=== PATIENT | female | born 1955 | race Asian ===

== ENCOUNTER 2020-04-13 09:39 | Inpatient (IN) | payer MEDICAID ==
[2020-04-06 09:42] LABS: EOSINOPHILS % (AUTO) 1.7 % (0.0-3.0); HEMATOCRIT 44.1 % (37.0-47.0); HEMOGLOBIN 14.4 G/DL (12.0-16.0); LYMPHOCYTES % (AUTO) 47.6 % (20.0-45.0); MEAN CORPUSCULAR VOLUME 95 FL (80-99); MONOCYTES % (AUTO) 5.7 % (1.0-10.0); NEUTROPHILS % (AUTO) 43.9 % (45.0-75.0); PLATELET COUNT 164 K/UL (150-450); RED BLOOD COUNT 4.64 M/UL (4.20-5.40); RED CELL DISTRIBUTION WIDTH 12.7 % (11.6-14.8); WHITE BLOOD COUNT 5.6 K/UL (4.8-10.8)
[2020-04-06 09:46] LABS: APPEARANCE,URINE CLEAR; BILIRUBIN, URINE NEGATIVE (NEGATIVE); COLOR,URINE PALE YELLOW; GLUCOSE, URINE (UA) NEGATIVE (NEGATIVE); KETONES,URINE NEGATIVE (NEGATIVE); LEUKOCYTE ESTERASE ,URINE 1+ (NEGATIVE); NITRITE,URINE NEGATIVE (NEGATIVE); PH,URINE 7 (4.5-8.0); PROTEIN,URINE NEGATIVE (NEGATIVE); UROBILINOGEN,URINE NORMAL MG/DL (0.0-1.0)
[2020-04-06 10:08] LABS: ANION GAP 7 mmol/L (5-15); BLOOD UREA NITROGEN 10 mg/dL (7-18); CALCIUM 9.2 MG/DL (8.5-10.1); CARBON DIOXIDE 29 MMOL/L (21-32); CHLORIDE 106 MMOL/L (98-107); CREATININE 0.9 MG/DL (0.55-1.30); POTASSIUM 3.8 MMOL/L (3.5-5.1); SODIUM 142 MMOL/L (136-145)
--- NOTE | 2020-04-06 16:04 | Diagnostic Imaging Report ---
Indication: Dyspnea, preop Technique: XRAY Chest 2v Comparison: None Findings: There is no focal airspace consolidation. No pleural effusion, pneumothorax or radiographic evidence of pulmonary edema. Heart size and mediastinal contours within normal limits. Mild atherosclerotic calcifications noted in the aortic arch. There are mild degenerative changes in the spine. No acute osseous abnormality. Impression: No radiographic evidence of acute cardiopulmonary disease.
--- NOTE | 2020-04-06 16:08 | Cardiology Report ---
APPROVED REPORT EKG Measurement Heart [id number] <Conclusion> Normal sinus rhythm Right superior axis deviation Pulmonary disease pattern Right ventricular hypertrophy Nonspecific ST abnormality Abnormal ECG
--- NOTE | 2020-04-09 07:43 | Anethesia Preoperative Eval ---
Anesthesia Pre-op PMH/ROS General Date of Evaluation: Apr 09, 2020 Anesthesiologist: Braden ASA Score: ASA 3 Mallampati Score Class I : Soft palate, uvula, fauces, pillars visible Class II: Soft palate, uvula, fauces visible Class III: Soft palate, base of uvula visible Class IV: Only hard plate visible Mallampati Classification: Class II Surgeon: Dano Diagnosis: Left breast cancer Surgical Procedure: Left breast partial mastectomy Anesthesia History: none Family History: no anesthesia problems Allergies: Coded Allergies: No Known Allergies (Unverified , 04/06/20) Medications: see eMAR Patient NPO?: Yes NPO Date: Apr 09, 2020 NPO Time: 00:00 Past Medical History Cardiovascular: Reports: HTN, other - HLD; Denies: CAD, NV, valve dz, arrhythmia Pulmonary: Denies: asthma, COPD, YONI, other Gastrointestinal/Genitourinary: Denies: GERD, CRI, ESRD, other Neurologic/Psychiatric: Denies: dementia, CVA, depression/anxiety, TIA, other Endocrine: Denies: DM, hypothyroidism, steroids, other HEENT: Denies: cataract (L), cataract (R), glaucoma, REDDING (L), REDDING (R), other Hematology/Immune: Reports: other - Left breast cancer; Denies: anemia, DVT, bleeding disorder Musculoskeletal/Integumentary: Denies: OA, RA, DJD, DDD, edema, other PSxH Narrative: Denies Anesthesia Pre-op Phys. Exam Physician Exam see chart Constitutional: NAD Cardiovascular: RRR Respiratory: CTA Airway Exam Mallampati Score: Class I MO: full ROM: full Anesthesia Pre-op A/P Labs see chart Studies Pre-op Studies: EKG - sr Risk Assessment & Plan Assessment: ASA III Plan: GA Status Change Before Surgery: No Pre-Antibiotics Drug: Ancef 1g Given Within 1 Hr of Incision: Yes Mera Feliciano MD Apr 09, 2020 07:43
--- NOTE | 2020-04-10 12:29 | Pre-op HX & Phy Repo 2 SIG ---
DATE OF ADMISSION: 04/13/2020 SCHEDULED FOR SURGERY: April 13, 2020. HISTORY OF PRESENT ILLNESS: The patient is a 64-year-old female in overall good health who underwent recent breast imaging revealing a span of 6.3 cm of suspicious microcalcifications and there was mass associated at 3 o'clock 6 to 7 cm from the nipple measuring 6.3 x 2.4 x 4.5 cm. 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 The patient underwent bilateral breast MRI with contrast to better define the extent of her disease and following that study reviewed together with the radiologist Dr. Dahl indicated that to clear the entire area of suspicious calcifications would require a mastectomy. The patient had previously expected a left breast partial mastectomy with bracketing needle localization. I discussed the new findings based on review of the MRI and correlation with the imaging studies showing the very extensive ductal carcinoma in situ of the breast which may in fact contain invasive carcinoma and advised the patient to undergo a left total mastectomy with lymph node sampling. PAST MEDICAL HISTORY: Medications for hypertension and cholesterol. ALLERGIES: None. OPERATIONS: None. REVIEW OF SYSTEMS: No prior history of breast disease. No family history of breast cancer. She is 3, para 3. She is menopausal. PHYSICAL EXAMINATION: GENERAL: The patient is 5 feet 4 inches, 156 pounds. Vital signs stable. HEENT: Within normal limits. LUNGS: Clear. HEART: Regular rhythm. BREASTS: Moderate in size and slightly ptotic. There is a 3 cm mass at 3 o'clock laterally in the left breast. There is no palpable abnormality of the right breast. There is no axillary or supraclavicular lymphadenopathy. ABDOMEN: Soft. PELVIC: Per primary care. RECTAL: Per primary care. EXTREMITIES: Without edema. NEUROLOGIC: Physiologic. 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 PLAN: Left total mastectomy with lymph node sampling. DISCUSSION: I have had a full discussion with the patient regarding the nature of her condition, the need for mastectomy, advisability of lymph node sampling, and alternatives options and risks including bleeding, infection, need for additional treatments based on final pathology, neuritis or neuralgia, nature of the scarring, etc. All questions have been answered. She understands and agrees to proceed. David Matson M.D. DR: Zenaida JOB#: [id number] CC: GENEVA
[~2020-04-13] VITALS: Ht 160 cm; Wt 69.9 kg
[2020-04-13] VITALS (12 sets, daily range): BP systolic 110–156; BP diastolic 58–86
[~2020-04-13 09:39] MED LIST: DiphenhydrAMINE 50mg/ml Inj IVP PRN; Hydromorphone 0.5mg/0.5ml inj IVP PRN; Ketorolac 30mg Inj IV PRN; LORazepam Inj 2mg/ml 1ml IV PRN; LR 1000ml 1,000 ML IVLG SCH; Labetalol 5mg/ml 20ml vial IV PRN; Metoclopramide 10mg/2ml Inj IVP PRN; Midazolam 2mg/2ml Inj IVP PRN; fentaNYL 100 mcg/2 mL IV PRN
--- NOTE | 2020-04-13 10:09 | Pre-Procedure Note/Attestation ---
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 I attest that, if there was a reasonable possibility of needing a blood transfusion, the patient (or the patient's legal office machines sales representative) was given the [facility] standardized written summary, pursuant to the Juan David Babbie Blood Safety Act ([place] Health and Safety Code # 1645, as amended). I attest that I re-evaluated the patient just prior to the surgery and that there has been no change in the patient's H&P, except as documented below:none David Matson MD Apr 13, 2020 10:09
[2020-04-13] MEDS ORDERED: Lidocaine 1% MPF 10mg/ml 5ml ONE (10:34)
[2020-04-13] MEDS ORDERED: fentaNYL 100 mcg/2 mL IV ONE (10:34)
[2020-04-13] MEDS ORDERED: Midazolam 2mg/2ml Inj ONE (10:34)
[2020-04-13] MEDS ORDERED: ATORVASTATIN CA20 MG ORAL (10:46)
[2020-04-13] MEDS ORDERED: AMLODIPINE BESYL5 MG ORAL (10:46)
--- NOTE | 2020-04-13 10:51 | Anethesia Preoperative Eval ---
Anesthesia Pre-op PMH/ROS General Date of Evaluation: Apr 13, 2020 Time of Evaluation: 10:49 Anesthesiologist: Millicent ASA Score: ASA 2 Mallampati Score Class I : Soft palate, uvula, fauces, pillars visible Class II: Soft palate, uvula, fauces visible Class III: Soft palate, base of uvula visible Class IV: Only hard plate visible Mallampati Classification: Class II Surgeon: Dano Diagnosis: L breast CA Surgical Procedure: L breast mastectomy Anesthesia History: none Family History: no anesthesia problems Allergies: Coded Allergies: No Known Allergies (Unverified , 04/06/20) Medications: see eMAR Patient NPO?: Yes NPO Date: Apr 09, 2020 NPO Time: 00:00 Past Medical History Cardiovascular: Reports: HTN - borderline; Denies: CAD, [place], valve dz, arrhythmia, other Pulmonary: Denies: asthma, COPD, YONI, other Gastrointestinal/Genitourinary: Reports: GERD; Denies: CRI, ESRD, other Neurologic/Psychiatric: Reports: depression/anxiety; Denies: dementia, CVA, TIA, other Endocrine: Denies: DM, hypothyroidism, steroids, other HEENT: Denies: cataract (L), cataract (R), glaucoma, RAMONA (L), RAMONA (R), other Hematology/Immune: Reports: anemia - mild; Denies: DVT, bleeding disorder, other Musculoskeletal/Integumentary: Denies: OA, RA, DJD, DDD, edema, other PMH Narrative: as above PSxH Narrative: see H&P Anesthesia Pre-op Phys. Exam Physician Exam Last Vital Signs Date Time Temp Pulse Resp B/P (MAP) Pulse Ox O2 Delivery O2 Flow Rate FiO2 04/13/20 10:36 Room Air 04/13/20 10:24 97.7 90 20 156/86 99 Constitutional: NAD Neurologic: CN 2-12 intact Cardiovascular: RRR, no M/R/G Respiratory: CTA Gastrointestinal: S/NT/ND Airway Exam Mallampati Score: Class II MO: limited Neck: stiff ROM: full Teeth: intact Dentures: no upper, no lower Anesthesia Pre-op A/P Labs see chart Studies Pre-op Studies: EKG - NSR, CXR - WNL Risk Assessment & Plan Assessment: ASA 2 Plan: GA with LMA Status Change Before Surgery: No Pre-Antibiotics Drug: Ancef 1gr Given Within 1 Hr of Incision: Yes Time Given: 12:10 Stef Ricks MD Apr 13, 2020 10:51
[2020-04-13] MEDS ORDERED: Bacitracin 50000 Units Vial ONE (11:55)
[2020-04-13] MEDS ORDERED: Sterile Water Irrig 1000ml IRRIG ONE (12:00)
[2020-04-13] MEDS ORDERED: LR 1000ml ONE (12:00)
[2020-04-13] MEDS ORDERED: NS Irrig 1000ml ONE (12:00)
[2020-04-13] MEDS ORDERED: Sodium Chloride 10ml vial INJ ONE (12:26)
[2020-04-13] MEDS ORDERED: Ketorolac 30mg Inj ONE (12:26)
[2020-04-13] MEDS ORDERED: Morphine Sulfate 10mg/ml Inj ONE (12:26)
[2020-04-13] MEDS ORDERED: LR 1000ml 1,000 ML IVLG SCH (12:45)
[2020-04-13] MEDS ORDERED: DiphenhydrAMINE 50mg/ml Inj IVP PRN (12:45)
[2020-04-13] MEDS ORDERED: Acetaminophen (Non formulary) 100 ML IV ONE (12:45)
[2020-04-13] MEDS ORDERED: Hydromorphone 0.5mg/0.5ml inj IVP PRN (12:45)
--- NOTE | 2020-04-13 14:09 | Immediate Post-Op Evaluation ---
Immediate Post-Op Evalulation Immediate Post-Op Evalulation Procedure: L modified radical mastectomy Date of Evaluation: Apr 13, 2020 Time of Evaluation: 14:08 IV Fluids: 1000 Blood Products: none Estimated Blood Loss: 100 Urinary Output: none Blood Pressure Systolic: 116 - 8275 Blood Pressure Diastolic: 76 Pulse Rate: 84 Respiratory Rate: 22 O2 Sat by Pulse Oximetry: 99 Temperature (Fahrenheit): 97.8 Pain Score (1-10): 1 Nausea: No Vomiting: No Complications none Patient Status: reacts, patent, none Hydration Status: adequate Stef Ricks MD Apr 13, 2020 14:09
--- NOTE | 2020-04-13 14:10 | Brief Operative Note ---
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
[2020-04-13] MEDS ORDERED: Metoclopramide 10mg/2ml Inj IVP PRN (14:15)
[2020-04-13] MEDS ORDERED: HYDROmorphone 1mg/ml Carpuject SUBQ PRN (14:15)
[2020-04-13] MEDS ORDERED: HYDROcodone/Acetamin 5/325 tab ORAL PRN (14:15)
--- NOTE | 2020-04-13 14:33 | 48 Hour Post Anesthesia Eval ---
Post Anesthesia Evaluation Procedure: L modified radical mastectomy Date of Evaluation: Apr 13, 2020 Time of Evaluation: 14:32 Blood Pressure Systolic: 114 0: 86 Pulse Rate: 74 Respiratory Rate: 20 Temperature (Fahrenheit): 97.6 O2 Sat by Pulse Oximetry: 98 Airway: patent Nausea: No Vomiting: No Pain Intensity: 2 Hydration Status: adequate Cardiopulmonary Status: stable Mental Status/LOC: patient returned to baseline Follow-up Care/Observations: n/a Post-Anesthesia Complications: none Follow-up care needed: N/A Stef Ricks MD Apr 13, 2020 14:33
--- NOTE | 2020-04-13 16:29 | Operative Note - Dictated ---
DATE OF OPERATION: 04/13/2020 SURGEON: David Matson MD MALL MANAGER: None. ANESTHESIOLOGIST: Stef Ricks MD TYPE OF ANESTHESIA: General endotracheal. PREOPERATIVE DIAGNOSIS: Extensive multifocal ductal carcinoma in situ, left breast with left breast mass, likely invasive ductal carcinoma. POSTOPERATIVE DIAGNOSIS: Extensive multifocal ductal carcinoma in situ, left breast with left breast mass, likely invasive ductal carcinoma. OPERATION PERFORMED: Left breast modified radical mastectomy. DESCRIPTION OF PROCEDURE: The patient presented with a left breast mass in the outer breast and imaging revealing extensive suspicious calcifications throughout the breast. MRI confirmed that a partial mastectomy would not clear all the disease. The patient was positioned supine in the operating room under general anesthesia with sequential compression device stockings in place. A transverse Mahesh incision was outlined going elliptically around the nipple-areolar complex. Flaps were dissected to the clavicle superiorly, sternum medially, costal margin inferiorly, and latissimus dorsi laterally. The breast was resected starting medially including the pectoralis major fascia. The lower level axillary dissection was performed using the Thunderbeat vessels and the electrosurgical device. The specimen was given off the field to pathology who agreed with the presence of a large mass with clear margins and the presence of axillary lymph nodes. The field was copiously irrigated with sterile water and then antibiotic solution and hemostasis carefully achieved with cautery. Through separate stab incisions inferolaterally, two large flat Shilo-Nielsen drains were placed, 1 under the flaps and 1 into the axilla. Each sutured to the skin with 2-0 nylon skin suture. The incision was closed with continuous 2-0 Vicryl deep dermal subcutaneous sutures followed by praveena. Dry sterile dressings were applied. Final sponge and counts were correct. The patient tolerated the procedure well and left the operating room in good condition. David Matson M.D. DR: JACOB JOB#: [id number] CC:
[2020-04-13] MEDS: D5 1/2NS w/KCl 20mEq 1,000 ML IV SCH (17:17)
[2020-04-13] MEDS: ceFAZolin sod 1 GM in D5W 55 ML IV SCH (20:01)
[2020-04-13] MEDS: Atorvastatin 20mg tab ORAL SCH (20:30)
[2020-04-14] VITALS: BP 116/75
[2020-04-14 04:00] VITALS: BP 105/57
[2020-04-14] MEDS: ceFAZolin sod 1 GM in D5W 55 ML IV SCH (04:05)
[2020-04-14] MEDS: D5 1/2NS w/KCl 20mEq 1,000 ML IV SCH (06:37)
[2020-04-14 08:00] VITALS: BP 114/61
[2020-04-14] MEDS ORDERED: Tubing IV Secondary IV ONE (08:57)
--- NOTE | 2020-04-14 09:58 | General Progress Note ---
Progress Note Progress Note AVSS Using norco for pain. Had nausea and unable to take po intake last night - much better this AM Left mastectomy with superior flap patchy ischemia/ecchymosis, incision clean JPs 12 hours overnight: 46 + 90 Imp: Stable with nausea resolved Plan: Ambulate with assistance TID Teach care of ESTEBAN drains f/u labs/ I&O d/c IV fluids if eating this AM David Matson MD Apr 14, 2020 09:58
[2020-04-14 12:00] VITALS: BP 107/66
[2020-04-14 16:00] VITALS: BP 125/72
[2020-04-14 20:11] VITALS: BP 110/66
[2020-04-14] MEDS: Atorvastatin 20mg tab ORAL SCH (20:56)
[2020-04-15] VITALS: BP 117/69
[2020-04-15 04:00] VITALS: BP 120/64
[2020-04-15 05:40] LABS: ANION GAP 2 mmol/L (5-15); BLOOD UREA NITROGEN 15 mg/dL (7-18); CALCIUM 8.1 MG/DL (8.5-10.1); CARBON DIOXIDE 30 MMOL/L (21-32); CHLORIDE 105 MMOL/L (98-107); CREATININE 0.9 MG/DL (0.55-1.30); POTASSIUM 3.9 MMOL/L (3.5-5.1); SODIUM 137 MMOL/L (136-145)
[2020-04-15 05:49] LABS: EOSINOPHILS % (AUTO) 1.3 % (0.0-3.0); HEMATOCRIT 30.4 % (37.0-47.0); HEMOGLOBIN 11.1 G/DL (12.0-16.0); MEAN CORPUSCULAR VOLUME 87 FL (80-99); MONOCYTES % (AUTO) 6.6 % (1.0-10.0); NEUTROPHILS % (AUTO) 49.1 % (45.0-75.0); PLATELET COUNT 143 K/UL (150-450); RED BLOOD COUNT 3.48 M/UL (4.20-5.40); RED CELL DISTRIBUTION WIDTH 13.3 % (11.6-14.8); WHITE BLOOD COUNT 6.8 K/UL (4.8-10.8)
[2020-04-15 08:00] VITALS: BP 116/69
--- NOTE | 2020-04-15 10:31 | General Progress Note ---
Progress Note Progress Note AVSS Not much pain. Has learned care of ESTEBAN drains Left mastectomy incision clean and dry, area of superior flat ischemia/ecchymosis is decreased JPs for 24 hours 60+62 labs okay Imp: Stable Plan: Discharge with ESTEBAN precious Rx none f/u office 04/19 Instructions/limitations/supplies discussed/provided David Matson MD Apr 15, 2020 10:31
[2020-04-15 12:00] VITALS: BP 121/77
--- NOTE | 2020-04-16 08:30 | Discharge Summary ---
Discharge Summary Hospital Course Date of Admission Apr 13, 2020 at 14:04 Date of Discharge Apr 15, 2020 at 12:39 Admitting Diagnosis Left breast cancer Reason for Hospitalization: Elective surgery HPI Breonna Posadas is a 64 year old female who was admitted on Apr 13, 2020 at 14:04 for Breast Cancer Procedures s/p 04/13/[address] Matson Left breast modified radical mastectomy Hospital Course status post surgery course of recovery uneventful initially IV fluids s/p perioperative antibiotic initially postoperatively had nausea and was unable to take oral intake antiemetics and analgesics provided as needed pain and nausea improved. left mastectomy with superior flap patchy ischemia/ecchymosis ; incision clean patient had 2 ESTEBAN drains postoperatively ESTEBAN output closely monitored patient was taught care of ESTEBAN drains incision remained clean dry and intact patient remained hemodynamically stable ambulated with assistance DVT prophylaxis provided use of incentive spirometry was encouraged while in the bed tolerated diet , IV fluids discontinued blood pressure was managed with current regimen and remained stable voided freely patient was stable for discharge with ESTEBAN drains patient to follow-up in the office 04/19 instruction/limitation/supplies discussed/provided follow up with pathology result FINAL DIAGNOSES Extensive multifocal ductal carcinoma in situ, left breast with left breast mass, likely invasive ductal carcinoma. s/p Left breast modified radical mastectomy HTN Discharge Medications Continued Medications: Amlodipine Besylate* (Amlodipine Besylate*) 5 Mg Tablet 5 MG ORAL DAILY for Hypertension, TAB Atorvastatin Calcium* (Atorvastatin Calcium*) 20 Mg Tablet 20 MG ORAL BEDTIME for Dyslipidemia, TAB Discharge Condition Upon Discharge: stable Discharge Vital Signs Last Vital Signs Date Time Temp Pulse Resp B/P (MAP) Pulse Ox O2 Delivery O2 Flow Rate FiO2 04/15/20 12:00 98.1 73 16 121/77 (92) 96 04/15/20 09:00 Room Air 04/13/20 15:40 3.0 Discharge Disposition Patient was discharged home Discharge Instructions Discharge Instructions Special Instructions I have been assigned to complete a D/C Summary on this account. I was not involved in the patient management Linda Carreno NP Apr 16, 2020 08:30
== END 2020-04-15 12:39 | disposition home or self-care (01) | DRG 362 ==
LOC: SUR 09:39 → 3E 14:04
PROC: 07T60ZZ Resection of Left Axillary Lymphatic, Open Approach (ICD-10-PCS; 2020-04-13)
PROC: 0HTU0ZZ Resection of Left Breast, Open Approach (ICD-10-PCS; principal; 2020-04-13 11:30)
DX: D05.12 Intraductal carcinoma in situ of left breast (principal); I10 Essential (primary) hypertension
CPT/HCPCS: 36415; 71046; 80048; 81001; 85025; 85610; 85730; 93005; 94003; 94150; J2250; J2405; U0002